=== PATIENT | female | born 1945 | race Caucasian/White ===

== ENCOUNTER 2023-06-25 13:29 | Outpatient (AMB) | payer MEDICARE, OTHER, SELFPAY ==
[2023-06-25 13:33] VITALS: BP 136/70; PULSE 90; O2SAT 96; BMI 32.3
--- NOTE | 2023-06-25 13:33 | MHC.OFFVIS ---
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 The patient is a 77-year-old woman with a history of breast cancer status post radiation in addition to renal cell cancer status post nephrectomy her apparently she has been in usual [facility] until several months ago when she started developing worsening cough shortness of breath. She was evaluated with a chest x-ray sometime in December 2022 demonstrating a hazy basilar opacities. The patient had a course of antibiotics and also prednisone. Her symptoms improved. She did have repeat chest x-ray still with persistent findings. Therefore she patient was referred for CT scan of the chest. I personally reviewed the x-rays and also the CT scan. Overall her lung parenchyma hot was very reassuring. She had some minimal pleural reactions around the right breast area where she did receive her radiation and has some minimal parenchymal scarring at the bases. But no significant parenchymal lung disease. She has small pulmonary nodules measuring about 3 mm in size difficult to visualize if not with the MIP for math he patient should get a repeat CT scan in February 2024. Otherwise she does complaint of shortness of breath at times. [id number] severity. She did use an inhaler in the past but then told that she did not need any longer. Will go ahead and request a pulmonary function study for the patient I will provide her with a rescue inhaler that she may use as needed. If the patient has any worsening symptoms prior to that she is to call the office. Otherwise will plan to repeat the CT scan in a year's time unless the patient has any worsening symptoms or there is any other abnormal findings. [facility] Medical History (Updated 06/25/23 @ 20:40 by Nav Pizano MD) Breast cancer Dyspnea ILD (interstitial lung disease) Pulmonary nodules Renal cancer Social History (Updated 06/25/23 @ 13:40 by Lizett Murphy, RMA) Patient Tobacco Use Status: Never used Tobacco Review of Systems Const Denies fever(s) Eyes Denies change in vision ENT Reports nasal congestion Card Denies chest pain, Denies rapid heart rate and Reports dyspnea on exertion Resp Denies chest congestion, Reports cough, Denies hemoptysis and Reports dyspnea on exertion GI Denies abdominal pain Musc Reports no additional complaints Skin/Breast Denies rash Neuro Reports no additional complaints Endo Denies flushing Juan Jose/Lymph Denies lymphadenopathy Aller/Immun Reports no additional complaints Physical Exam Vital Signs: Last Vital Signs Pulse 90 06/25/23 13:33 BP 136/70 06/25/23 13:33 Pulse Ox 96 06/25/23 13:33 Oxygen Delivery Method Room Air 06/25/23 13:33 BMI result Body Mass Index 32.3 Const General: comfortable HEENT Head: Yes normocephalic Eyes General: appearance normal, both eyes and all related structures Neck Neck: Yes supple Chest Chest palpation & inspection: normal inspection of the chest Resp Effort & Inspection: normal respiratory effort and able to speak in complete sentences Auscultation: no crackles, no rales, no rhonchi and diminished lung sounds Cardio Rate: regular rate Rhythm: regular rhythm Heart sounds: S1 normal heart sound present and S2 normal heart sound present GI Palpation (GI): Soft to palpation Skin General skin exam: no rashes or lesions noted Extrem General: Yes no clubbing, cyanosis or edema Assessment & Plan Assessment & Plan (1) Dyspnea: Code(s): R06.00 - Dyspnea, unspecified Qualifiers: Dyspnea type: dyspnea on exertion Qualified Code(s): R06.09 - Other forms of dyspnea (2) ILD (interstitial lung disease): Comment: minimal changes at the bases. Also minimal pleural based changes due to previous breast XRT Code(s): J84.9 - Interstitial pulmonary disease, unspecified (3) Pulmonary nodules: Code(s): R91.8 - Other nonspecific abnormal finding of lung field Plan start HANSA as needed PFTs Repeat CT cest 02/2024 F/U 3-4 months Orders: Orders CT chest wo IV con 02/25/24 R91.8 - Other nonspecific abnormal finding of lung field PFT pulmonary function test Today R06.09 - Other forms of dyspnea Medications: New albuterol sulfate 90 mcg/actuation 2 inhalations inhalation Q6H PRN 18 grams 12RF shortness of breath or wheezing 30 days J44.9 - Chronic obstructive pulmonary disease, unspecified Coding Level of Care Code New Pt Level 4 (87189) Diagnoses Dyspnea R06.09 Dyspnea type: dyspnea on exertion ILD (interstitial lung disease) J84.9 Pulmonary nodules R91.8 Time Spent (min) 38
== END 2023-06-25 14:07 | disposition home or self-care (01) ==
PROVIDERS: PCP Nurse Practitioner Primary Care; Visit Provider Hospitalist
DX: R06.09 Other forms of dyspnea (principal); J84.9 Interstitial pulmonary disease, unspecified; R91.8 Other nonspecific abnormal finding of lung field
CPT/HCPCS: 99204

== ENCOUNTER → 2023-06-25 13:29 | Outpatient (BNVA) | payer MEDICARE, OTHER, SELFPAY | PROVIDERS: Visit Provider Hospitalist | DX: R06.09 Other forms of dyspnea (principal); J84.9 Interstitial pulmonary disease, unspecified; R91.8 Other nonspecific abnormal finding of lung field; Z85.3 Personal history of malignant neoplasm of breast; Z85.53 Personal history of malignant neoplasm of renal pelvis; Z90.5 Acquired absence of kidney; Z92.3 Personal history of irradiation | CPT/HCPCS: 99202 ==

== ENCOUNTER 2023-09-18 10:48 | Outpatient (REF) | payer MEDICARE, OTHER, SELFPAY ==
--- NOTE | 2023-09-18 12:30 | PFT_ITS ---
INDICATION: Dyspnea. SPIROMETRY: FEV1 to FVC is 69% pre bronchodilators, 77% post bronchodilators with an FEV1 of 1.48 L, which is 100% predicted and an FVC of 1.92 L, which is 90% predicted. No significant response to bronchodilators noted. Maximum voluntary ventilation 56% predicted. LUNG VOLUMES: Total lung capacity 82% predicted. DIFFUSION CAPACITY: DLCO of 70% predicted. COMPARISONS: None available. INTERPRETATION: There appears to be a reversible obstructive ventilatory defect, consistent with a diagnosis of asthma. The patient did not have a significant response to bronchodilators noted. There was significant small airway disease. The patient had a mild decrease in the maximum voluntary ventilation, which could be secondary to deconditioning. Lung volumes are low normal, and the patient does have a mild diffusion impairment. Clinical correlation warranted. MD JOEY Cole/MODL / [id number]
== END 2023-09-18 10:49 | disposition home or self-care (01) ==
LOC: HO.RESP 10:48
PROVIDERS: PCP Nurse Practitioner Primary Care; Visit Provider Hospitalist
DX: R06.09 Other forms of dyspnea (principal)
CPT/HCPCS: 94010; 94729

== ENCOUNTER → 2023-09-18 12:30 | Outpatient (BNV) | payer MEDICARE, OTHER, SELFPAY | PROVIDERS: PCP Nurse Practitioner Primary Care; Visit Provider Hospitalist | DX: R06.09 Other forms of dyspnea (principal) | CPT/HCPCS: 94060; 94727; 94729 ==

== ENCOUNTER 2023-10-23 10:45 | Outpatient (AMB) | payer MEDICARE, OTHER, SELFPAY ==
[2023-10-23 10:48] VITALS: BP 110/64; PULSE 95; RESP 12; O2SAT 96; BMI 34.3
--- NOTE | 2023-10-23 10:48 | A.OFFVIS_ITS ---
Intake Vital Signs 10/23/23 10:48 Height 4 ft 11 in Weight 170 lb BMI 34.3 BP 110/64 Blood Pressure Location Lt brachial Position Sitting Respiration 12 Pulse 95 Pulse Source Pulse Oximeter Pulse Oximetry (%) 96 Oxygen Delivery Method Room Air Intake Visit Reasons: ILD Allergies Penicillins Allergy (Severe, Verified 10/23/23 10:51) Rash sulfa Drugs Adverse Reaction (Severe, Uncoded 10/23/23 10:51) Rash Medication List - Last Reconciled 10/23/23 by Carmen Lopez LPN albuterol sulfate 90 mcg/actuation 2 inhalations inhalation Q6H PRN 30 days gabapentin 300 mg PO BEDTIME mirabegron ER (Myrbetriq) 25 mg PO DAILY omeprazole 20 mg PO DAILY pravastatin 20 mg PO BEDTIME risankizumab-rzaa (Skyrizi) 600 mg IV Q4W ropinirole mg PO sertraline 50 mg PO DAILY tobramycin-dexamethasone 0.3-0.1 % (TobraDex) ophthalmic (eye) BID PRN triamcinolone acetonide 0.1% appl topical BID PRN verapamil ER 120 mg PO DAILY HPI HPI Comments History of Present Illness Details The patient is a 78-year-old woman with a history of breast cancer status post radiation in addition to renal cell cancer status post nephrectomy her apparently she has been in usual state [facility] until several months ago when she started developing worsening cough shortness of breath. She was evaluated with a chest x-ray sometime in December 2022 demonstrating a hazy basilar opacities. The patient had a course of antibiotics and also prednisone. Her symptoms improved. She did have repeat chest x-ray still with persistent findings. Therefore she patient was referred for CT scan of the chest. I personally reviewed the x-rays and also the CT scan. Overall her lung parenchyma hot was very reassuring. She had some minimal pleural reactions around the right breast area where she did receive her radiation and has some minimal parenchymal scarring at the bases. But no significant parenchymal lung disease. She has small pulmonary nodules measuring about 3 mm in size difficult to visualize if not with the MIP for math he patient should get a repeat CT scan in February 2024. Otherwise she does complaint of shortness of breath at times. [id number] severity. She did use an inhaler in the past but then told that she did not need any longer. Will go ahead and request a pulmonary function study for the patient I will provide her with a rescue inhaler that she may use as needed. If the patient has any worsening symptoms prior to that she is to call the office. Otherwise will plan to repeat the CT scan in a year's time unless the patient has any worsening symptoms or there is any other abnormal findings. 10/23/2023 the patient is here for a pul monary follow-up visit. The patient overall has been doing well. She has been exercising more. She finds that the rescue inhaler has been helpful specially after she exercises she gets short of breath. I did also recommend she can use inhaler prior to exercise to see if that would improve her exercise capacity. In addition to that she did undergo pulmonary function studies which we personally reviewed together. It appears that she has a reversible obstruction consistent with some degree of asthma. Therefore the use of the rescue inhaler she has fine. Although if she continues to need it frequently more than twice a week then we can consider a longer acting medications such as Symbicort she can also use as needed. The patient does have underlying interstitial changes and also some areas of ground-glass on the CT scan that she had back in 2022. But, her total lung capacity is within normal limits under PFTs which is reassuring. She does have a mild diffusion impairment will go ahead and repeat her CT scan in February 2024 to follow-up on her pulmonary nodules and interstitial changes. In the meantime she is going to continue with the albuterol. If she does change him I want to try Symbicort she can always call him consent prescription. [facility] Medical History (Updated 10/23/23 @ 20:44 by Nav Pizano MD) Asthma Pulmonary nodules ILD (interstitial lung disease) Renal cancer Breast cancer Dyspnea Social History (Updated 06/25/23 @ 13:40 by VITO Up) Patient Tobacco Use Status: Never used Tobacco Review of Systems Const Denies fever(s) Eyes Denies change in vision ENT Reports nasal congestion Card Denies chest pain, Denies rapid heart rate and Reports dyspnea on exertion Resp Denies chest congestion, Reports cough, Denies hemoptysis and Reports dyspnea on exertion GI Denies abdominal pain Musc Reports no additional complaints Skin/Breast Denies rash Neuro Reports no additional complaints Endo Denies flushing Juan Jose/Lymph Denies lymphadenopathy Aller/Immun Reports no additional complaints Physical Exam Vital Signs: Last Vital Signs Pulse 95 10/23/23 10:48 Resp 12 10/23/23 10:48 BP 110/64 10/23/23 10:48 Pulse Ox 96 10/23/23 10:48 Oxygen Delivery Method Room Air 10/23/23 10:48 BMI result Body Mass Index 34.3 Const General: comfortable HEENT Head: Yes normocephalic Eyes General: appearance normal, both eyes and all related structures Neck Neck: Yes supple Chest Chest palpation & inspection: normal inspection of the chest Resp Effort & Inspection: normal respiratory effort and able to speak in complete sentences Auscultation: no crackles, no rales, no rhonchi and diminished lung sounds Cardio Rate: regular rate Rhythm: regular rhythm Heart sounds: S1 normal heart sound present and S2 normal heart sound present GI Palpation (GI): Soft to palpation Skin General skin exam: no rashes or lesions noted Extrem General: Yes no clubbing, cyanosis or edema Assessment & Plan Assessment & Plan (1) Dyspnea: Code(s): R06.00 - Dyspnea, unspecified Qualifiers: Dyspnea type: dyspnea on exertion Qualified Code(s): R06.09 - Other forms of dyspnea (2) ILD (interstitial lung disease): Comment: minimal changes at the bases. Also minimal pleural based changes due to previous breast XRT Code(s): J84.9 - Interstitial pulmonary disease, unspecified (3) Pulmonary nodules: Code(s): R91.8 - Other nonspecific abnormal finding of lung field (4) Asthma: Comment: +reversible obstruction on spiometry Code(s): J45.909 - Unspecified asthma, uncomplicated Qualifiers: Asthma severity: mild Asthma persistence: persistent Asthma complication type: uncomplicated Qualified Code(s): J45.30 - Mild persistent asthma, uncomplicated Plan continue HANSA as needed Repeat CT cest 02/2024 F/U 4 months Coding Level of Care Code Est Pt Level 4 (11283) Diagnoses Dyspnea on exertion R06.09 Dyspnea type: dyspnea on exertion ILD (interstitial lung disease) J84.9 Pulmonary nodules R91.8 Mild persistent asthma without complication J45.30 Asthma severity: mild Asthma persistence: persistent Asthma complication type: uncomplicated Time Spent (min) 16
== END 2023-10-23 11:18 | disposition home or self-care (01) ==
PROVIDERS: PCP Nurse Practitioner Primary Care; Visit Provider Hospitalist
DX: R06.09 Other forms of dyspnea (principal); J84.9 Interstitial pulmonary disease, unspecified; R91.8 Other nonspecific abnormal finding of lung field; J45.30 Mild persistent asthma, uncomplicated
CPT/HCPCS: 99214

== ENCOUNTER → 2023-10-23 10:45 | Outpatient (BNVA) | payer MEDICARE, OTHER, SELFPAY | PROVIDERS: PCP Nurse Practitioner Primary Care; Visit Provider Hospitalist | DX: J45.30 Mild persistent asthma, uncomplicated (principal); J84.9 Interstitial pulmonary disease, unspecified; R06.09 Other forms of dyspnea; R91.8 Other nonspecific abnormal finding of lung field | CPT/HCPCS: 99212 ==

== ENCOUNTER 2024-02-20 08:44 | Outpatient (REF) | payer MEDICARE, OTHER, SELFPAY ==
--- NOTE | ~2024-02-20 | CT_ITS ---
EXAMINATION: CT CHEST WITHOUT CONTRAST CLINICAL INFORMATION: Pulmonary nodule COMPARISON: Written report on CT scan of chest at [facility] on 03/05/2023. TECHNIQUE: Multidetector volumetric CT imaging of the chest was done. Axial MIP volume rendering provided. Sagittal and coronal reformatted images were obtained. This CT examination was performed using dose optimization techniques as appropriate, variously including the following: *Automated exposure control *Adjustment of mA and/or kV according to patient size (this includes techniques or standardized protocols for targeted exams where dose is matched to indication/reason for exam; i.e. extremities or head) *Use of iterative reconstruction technique DLP: 122 mGy-cm FINDINGS: LUNGS: The visualized lung parenchyma is clear. -Nodule #1 (Series 6, image 132): 5.4 mm solid nodule, posterior medial corner of right upper lobe apical segment, previously 3 mm. -Nodule #2 (Series 6, image 205): 4.5 mm solid nodule, anterior medial border of right lower lobe superior segment attached to the right major fissure, compatible with intrapulmonary lymph node, previously 3 mm. The previously reported posterior left apical calcified granuloma could not be visualized on the current examination. PLEURA: No pleural effusion or pneumothorax is seen. PERICARDIUM: No pericardial effusion is seen. MEDIASTINUM AND GLORIA: Inadequate evaluation of the mediastinal and hilar lymph nodes due to absence of IV contrast filling the surrounding blood vessels. TRACHEOBRONCHIAL TREE: Trachea and bilateral mainstem bronchi are densely calcified, but patent. THORACIC AORTA: The thoracic aorta is normal in size and smoothly patent. CORONARY ARTERY CALCIFICATIONS: None PULMONARY ARTERIES: The main pulmonary arteries appear to be normal in size. CHEST WALL AND LOWER NECK: Multiple surgical clips are seen in the right axilla. Asymmetric superior medial right breast irregular lesion, measuring 0.8 cm in AP diameter, 1.5 cm in width, just anterior to the right pectoralis major muscle. The subcutaneous and muscular chest wall are intact with no focal lesion. No abnormal mass lesion could be seen in the visualized lower neck. BONES: Lower cervical spine ACDF, fixation with anterior metallic plate and screws is seen. No fracture or dislocation. No focal bone lesion diagnostic of metastatic disease could be seen in the thorax. VISUALIZED UPPER ABDOMEN: Bilateral adrenal glands are not enlarged. CT/CT chest wo IV con IMPRESSION: 1. 5.4 mm solid nodule, posterior medial corner of right upper lobe apical segment, previously 3 mm. 2. 4.5 mm solid nodule, anterior medial border of right lower lobe superior segment, compatible with intrapulmonary lymph node, previously 3 mm. 3. Asymmetric superior medial right breast irregular lesion, measuring 0.8 cm in AP diameter, 1.5 cm in width, just anterior to the right pectoralis major muscle. 4. Apart from unchanged status post right axillary dissection, the superior medial right breast irregular nodule directly anterior to the right pectoralis major muscle was not reported previously. Correlation with mammographic findings is recommended. According to the UPDATED 2017 Fleischner Society recommendations, the advised follow-up imaging for nodules <6mm in the upper lobes is not necessarily required in low-risk patients. In high-risk patients with a nodule in the upper lobe and/or demonstrating suspicious morphology, an optional CT follow-up at 12 months may be obtained. If stable at 12 months, no further follow-up is recommended. Given the possible interval increase in size of the right upper lobe lung nodule, which could be due to variation in measurements, it would be prudent to follow-up with noncontrast CT scan of chest in 12 months. Fleischner guidelines were followed.
== END 2024-02-20 08:45 | disposition home or self-care (01) ==
LOC: HO.CT 08:44
PROVIDERS: PCP Nurse Practitioner Primary Care; Visit Provider Hospitalist
DX: R91.8 Other nonspecific abnormal finding of lung field (principal)
CPT/HCPCS: 71250

== ENCOUNTER 2024-04-01 10:58 | Outpatient (AMB) | payer MEDICARE, OTHER, SELFPAY ==
[2024-04-01 11:02] VITALS: PULSE 82; O2SAT 97; BMI 31.3
--- NOTE | 2024-04-01 11:02 | MHC.OFFVIS ---
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 She was evaluated with a chest x-ray sometime in December 2022 demonstrating a hazy basilar opacities. The patient had a course of antibiotics and also prednisone. Her symptoms improved. She did have repeat chest x-ray still with persistent findings. Therefore she patient was referred for CT scan of the chest. I personally reviewed the x-rays and also the CT scan. Overall her lung parenchyma hot was very reassuring. She had some minimal pleural reactions around the right breast area where she did receive her radiation and has some minimal parenchymal scarring at the bases. But no significant parenchymal lung disease. She has small pulmonary nodules measuring about 3 mm in size difficult to visualize if not with the MIP for math he patient should get a repeat CT scan in February 2024. Otherwise she does complaint of shortness of breath at times. Ymrz-ci-pthnzyeg severity. She did use an inhaler in the past but then told that she did not need any longer. Will go ahead and request a pulmonary function study for the patient I will provide her with a rescue inhaler that she may use as needed. If the patient has any worsening symptoms prior to that she is to call the office. Otherwise will plan to repeat the CT scan in a year's time unless the patient has any worsening symptoms or there is any other abnormal findings. 10/23/2023 the patient is here for a pulmonary follow-up visit. The patient overall has been doing well. She has been exercising more. She finds that the rescue inhaler has been helpful specially after she exercises she gets short of breath. I did also recommend she can use inhaler prior to exercise to see if that would improve her exercise capacity. In addition to that she did undergo pulmonary function studies which we personally reviewed together. It appears that she has a reversible obstruction consistent with some degree of asthma. Therefore the use of the rescue inhaler she has fine. Although if she continues to need it frequently more than twice a week then we can consider a longer acting medications such as Symbicort she can also use as needed. The patient does have underlying interstitial changes and also some areas of ground-glass on the CT scan that she had back in 2022. But, her total lung capacity is within normal limits under PFTs which is reassuring. She does have a mild diffusion impairment will go ahead and repeat her CT scan in February 2024 to follow-up on her pulmonary nodules and interstitial changes. In the meantime she is going to continue with the albuterol. If she does change him I want to try Symbicort she can always call him consent prescription. 04/01/2024 the patient is here for a pulmonary follow-up visit. The patient has been doing well. She continues have shortness of breath with activity. Cnxu-by-ilsvjuvp severity. She does have a rescue inhaler she does use the patient did have pulmonary function studies which we did review demonstrating reversible obstruction. Therefore explained to her that using a maintenance inhaler may be to her benefit. Before, we has [facility] Symbicort but it was too expensive. Will go ahead and send her Breo to the pharmacy to see this is less expensive. If it is expensive we can also consider other alternatives. The patient would still benefit from using a maintenance inhaler. The patient also had a CT scan of the chest which was personally by me. She does have some underlying pulmonary nodules that will need follow-up. She also had a breast nodule that was followed up with a biopsy that was negative for any cancer which is reassuring. The continue to monitor. In addition to that the patient did have some very fine reticular changes primarily in the periphery of the lungs suggesting some degree of interstitial lung disease likely corresponding to her symptoms. On her physical exam the patient did have pronounced S2. I did bring up the question of sleep apnea based on that suggestion of elevated pulmonary pressures with that pronounced S2. She states that she does have significant snoring some daytime drowsiness with an elevated [place] score of 8/24. She is scheduled to have a sleep study soon. [facility] Medical History (Updated 04/01/24 @ 11:23 by Nav Pizano MD) FARIDEH (obstructive sleep apnea) Asthma Pulmonary nodules ILD (interstitial lung disease) Renal cancer Breast cancer Dyspnea Social History (Updated 06/25/23 @ 13:40 by VITO Up) Patient Tobacco Use Status: Never used Tobacco Review of Systems Const Denies fever(s) Eyes Denies change in vision ENT Reports nasal congestion Card Denies chest pain, Denies rapid heart rate and Reports dyspnea on exertion Resp Denies chest congestion, Reports cough, Denies hemoptysis and Reports dyspnea on exertion GI Denies abdominal pain Musc Reports no additional complaints Skin/Breast Denies rash Neuro Reports no additional complaints Endo Denies flushing Juan Jose/Lymph Denies lymphadenopathy Aller/Immun Reports no additional complaints Physical Exam Vital Signs: Last Vital Signs Pulse 82 04/01/24 11:02 Pulse Ox 97 04/01/24 11:02 Oxygen Delivery Method Room Air 04/01/24 11:02 BMI result Body Mass Index 31.3 Const General: comfortable HEENT Head: Yes normocephalic Eyes General: appearance normal, both eyes and all related structures Neck Neck: Yes supple Chest Chest palpation & inspection: normal inspection of the chest Resp Effort & Inspection: normal respiratory effort and able to speak in complete sentences Auscultation: no crackles, no rales, no rhonchi and diminished lung sounds Cardio Rate: regular rate Rhythm: regular rhythm Heart sounds: S1 normal heart sound present and S2 normal heart sound present GI Palpation (GI): Soft to palpation Skin General skin exam: no rashes or lesions noted Extrem General: Yes no clubbing, cyanosis or edema Assessment & Plan Assessment & Plan (1) Dyspnea: Code(s): R06.00 - Dyspnea, unspecified Category: Medical Qualifiers: Dyspnea type: dyspnea on exertion Qualified Code(s): R06.09 - Other forms of dyspnea (2) ILD (interstitial lung disease): Comment: minimal changes at the bases. Also minimal pleural based changes due to previous breast XRT Code(s): J84.9 - Interstitial pulmonary disease, unspecified Category: Medical (3) Pulmonary nodules: Code(s): R91.8 - Other nonspecific abnormal finding of lung field Category: Medical (4) Asthma: Comment: +reversible obstruction on spiometry Code(s): J45.909 - Unspecified asthma, uncomplicated Category: Medical Qualifiers: Asthma complication type: uncomplicated Asthma persistence: persistent Asthma severity: mild Qualified Code(s): J45.30 - Mild persistent asthma, uncomplicated (5) FARIDEH (obstructive sleep apnea): Code(s): G47.33 - Obstructive sleep apnea (adult) (pediatric) Category: Medical Plan continue HANSA as needed start Breo daily Repeat CT cest 01/2025 Sleep study at [facility] F/U in 6 months Orders: Orders CT chest wo IV con 02/09/25 R91.8 - Other nonspecific abnormal finding of lung field Medications: New fluticasone furoate-vilanterol 200-25 mcg/dose (Breo Ellipta) 1 inh inhalation DAILY 30 days 60 ea 11RF J45.909 - Unspecified asthma, uncomplicated fluticasone furoate-vilanterol 200-25 mcg/dose (Breo Ellipta) 1 inh inhalation DAILY 30 days 60 ea 11RF J45.909 - Unspecified asthma, uncomplicated Coding Level of Care Code Est Pt Level 4 (94185) Diagnoses Dyspnea on exertion R06.09 Dyspnea type: dyspnea on exertion ILD (interstitial lung disease) J84.9 Pulmonary nodules R91.8 Mild persistent asthma without complication J45.30 Asthma complication type: uncomplicated Asthma persistence: persistent Asthma severity: mild FARIDEH (obstructive sleep apnea) G47.33 Time Spent (min) 17
== END 2024-04-01 11:27 | disposition home or self-care (01) ==
PROVIDERS: PCP Nurse Practitioner Primary Care; Visit Provider Hospitalist
DX: R06.09 Other forms of dyspnea (principal); J84.9 Interstitial pulmonary disease, unspecified; R91.8 Other nonspecific abnormal finding of lung field; J45.30 Mild persistent asthma, uncomplicated; G47.33 Obstructive sleep apnea (adult) (pediatric)
CPT/HCPCS: 99214

== ENCOUNTER → 2024-04-01 10:58 | Outpatient (BNVA) | payer MEDICARE, OTHER, SELFPAY | PROVIDERS: PCP Nurse Practitioner Primary Care; Visit Provider Hospitalist | DX: J84.9 Interstitial pulmonary disease, unspecified (principal); R06.09 Other forms of dyspnea; R91.8 Other nonspecific abnormal finding of lung field; J45.30 Mild persistent asthma, uncomplicated; G47.33 Obstructive sleep apnea (adult) (pediatric) | CPT/HCPCS: 99212 ==

== ENCOUNTER 2024-10-15 11:04 | Outpatient (REF) | payer MEDICARE, OTHER, SELFPAY ==
[2024-10-15 12:31] LABS: MANUAL DIFF FLAG NO
[2024-10-15 12:58] LABS: Basophils Absolute Auto 0.1 X10*3/uL (0.0-0.2); Basophils Percent Auto 1.3 % (0-2); Eosinophils Absolute Auto 0.1 X10*3/uL (0.0-0.4); Eosinophils Percent Auto 2.3 % (0-4); Hematocrit 39.3 % (37.0-47.0); Hemoglobin 13.3 g/dl (12.0-16.0); Imm Gran Abs Auto 0.02 X10*3/uL (0.00-0.03); Imm Gran Pct Auto 0.3 % (0.0-0.4); Lymphocytes Absolute Auto 1.8 X10*3/uL (1.2-4.9); Lymphocytes Percent Auto 30.8 % (20-40); Mean Corpuscular HGB Conc 33.8 g/dl (31.0-35.0); Mean Corpuscular Hemoglobin 30.3 pg (27.0-33.0); Mean Corpuscular Volume 89.5 fL (80.0-98.0); Mean Platelet Volume 9.3 fL (9.4-12.3); Monocytes Absolute Auto 0.7 X10*3/uL (0.1-1.2); Monocytes Percent Auto 11.2 % (2-11); Neutrophils Absolute Auto 3.2 x10*3/uL (2.0-8.3); Neutrophils Percent Auto 54.1 % (45-73); Platelet Count 310 X10*3/uL (160-400); Red Blood Count 4.39 X10*6/uL (4.20-5.50); Red Cell Distribution Width 13.2 % (11.0-16.0)
[2024-10-15 13:35] LABS: Erythrocyte Sedimentation Rate 22 MM/HR (0-20)
[2024-10-15 13:43] LABS: B Type Natriuretic Peptide 69 pg/mL (<100)
[2024-10-17 10:39] LABS: Anti Nuclear Antibody Screen NEGATIVE (NEGATIVE)
[2024-10-17 17:18] LABS: Antibody to SS-A Antigen <1.0 NEG AI (<1.0 NEG); Antibody to SS-B Antigen <1.0 NEG AI (<1.0 NEG)
[2024-10-18 00:12] LABS: Cyclic Citrullinated Peptide 22 UNITS
[2024-10-23 17:03] LABS: Asperg fumigatus Precip Abs NEGATIVE (NEGATIVE); Micropoly faeni Abs NEGATIVE (NEGATIVE); Pigeon serum Abs NEGATIVE (NEGATIVE); Saccharo pora viridis Abs NEGATIVE (NEGATIVE); Thermo candidus Abs NEGATIVE (NEGATIVE); Thermoa vulgaris #1 NEGATIVE (NEGATIVE)
== END 2024-10-15 11:05 | disposition home or self-care (01) ==
LOC: HO.XRAY 11:04
PROVIDERS: PCP Nurse Practitioner Primary Care; Visit Provider Hospitalist
DX: J44.9 Chronic obstructive pulmonary disease, unspecified (principal); J45.909 Unspecified asthma, uncomplicated; R06.09 Other forms of dyspnea; J84.9 Interstitial pulmonary disease, unspecified; R91.8 Other nonspecific abnormal finding of lung field
CPT/HCPCS: 36415; 71046; 83880; 85025; 85652; 86038; 86200; 86235; 86331; 86606; 86609; 99212

== ENCOUNTER 2024-10-15 11:04 | Outpatient (AMB) | payer MEDICARE, OTHER, SELFPAY ==
[2024-10-15 11:20] VITALS: BP 126/62; PULSE 105; O2SAT 96
--- NOTE | 2024-10-15 11:20 | MHC.OFFVIS ---
Vital Signs 10/15/24 11:20 Weight 165 lb 5.547 oz BP 126/62 Blood Pressure Location Lt brachial Position Sitting Pulse 105 H Pulse Source Pulse Oximeter Pulse Oximetry (%) 96 Oxygen Delivery Method Room Air Intake Visit Reasons: ILD Allergies Penicillins Allergy (Severe, Verified 10/15/24 11:25) Rash sulfa Drugs Adverse Reaction (Severe, Uncoded 10/15/24 11:25) Rash Medication List - Last Reconciled 10/15/24 by Celia Broussard LPN albuterol sulfate 90 mcg/actuation 2 inhalations inhalation Q6H PRN 30 days fluticasone furoate-vilanterol 200-25 mcg/dose (Breo Ellipta) 1 inh inhalation DAILY 30 days gabapentin 300 mg PO BEDTIME mirabegron ER (Myrbetriq) 25 mg PO DAILY omeprazole 20 mg PO DAILY pravastatin 20 mg PO BEDTIME risankizumab-rzaa (Skyrizi) 600 mg IV Q4W risankizumab-rzaa (Skyrizi) mg subcut ropinirole mg PO sertraline 50 mg PO DAILY verapamil ER 120 mg PO DAILY HPI Comments Details: The patient is a 79-year-old woman with a history of breast cancer status post radiation in addition to renal cell cancer status post nephrectomy her apparently she has been in usual state health until several months ago when she started developing worsening cough shortness of breath. She was evaluated with a chest x-ray sometime in December 2022 demonstrating a hazy basilar opacities. The patient had a course of antibiotics and also prednisone. Her symptoms improved. She did have repeat chest x-ray still with persistent findings. Therefore she patient was referred for CT scan of the chest. I personally reviewed the x-rays and also the CT scan. Overall her lung parenchyma hot was very reassuring. She had some minimal pleural reactions around the right breast area where she did receive her radiation and has some minimal parenchymal scarring at the bases. But no significant parenchymal lung disease. She has small pulmonary nodules measuring about 3 mm in size difficult to visualize if not with the MIP for math he patient should get a repeat CT scan in February 2024. Otherwise she does complaint of shortness of breath at times. Hmoq-lz-cchtorjx severity. She did use an inhaler in the past but then told that she did not need any longer. Will go ahead and request a pulmonary function study for the patient I will provide her with a rescue inhaler that she may use as needed. If the patient has any worsening symptoms prior to that she is to call the office. Otherwise will plan to repeat the CT scan in a year's time unless the patient has any worsening symptoms or there is any other abnormal findings. 10/23/2023 the patient is here for a pulmonary follow-up visit. The patient overall has been doing well. She has been exercising more. She finds that the rescue inhaler has been helpful specially after she exercises she gets short of breath. I did also recommend she can use inhaler prior to exercise to see if that would improve her exercise capacity. In addition to that she did undergo pulmonary function studies which we personally reviewed together. It appears that she has a reversible obstruction consistent with some degree of asthma. Therefore the use of the rescue inhaler she has fine. Although if she continues to need it frequently more than twice a week then we can consider a longer acting medications such as Symbicort she can also use as needed. The patient does have underlying interstitial changes and also some areas of ground-glass on the CT scan that she had back in 2022. But, her total lung capacity is within normal limits under PFTs which is reassuring. She does have a mild diffusion impairment will go ahead and repeat her CT scan in February 2024 to follow-up on her pulmonary nodules and interstitial changes. In the meantime she is going to continue with the albuterol. If she does change him I want to try Symbicort she can always call him consent prescription. 04/01/2024 the patient is here for a pulmonary follow-up visit. The patient has been doing well. She continues have shortness of breath with activity. Lcfy-uq-xazjmbtj severity. She does have a rescue inhaler she does use the patient did have pulmonary function studies which we did review demonstrating reversible obstruction. Therefore explained to her that using a maintenance inhaler may be to her benefit. Before, we has [facility] Symbicort but it was too expensive. Will go ahead and send her Breo to the pharmacy to see this is less expensive. If it is expensive we can also consider other alternatives. The patient would still benefit from using a maintenance inhaler. The patient also had a CT scan of the chest which was personally by me. She does have some underlying pulmonary nodules that will need follow-up. She also had a breast nodule that was followed up with a biopsy that was negative for any cancer which is reassuring. The continue to monitor. In addition to that the patient did have some very fine reticular changes primarily in the periphery of the lungs suggesting some degree of interstitial lung disease likely corresponding to her symptoms. On her physical exam the patient did have pronounced S2. I did bring up the question of sleep apnea based on that suggestion of elevated pulmonary pressures with that pronounced S2. She states that she does have significant snoring some daytime drowsiness with an elevated [place] score of 8/24. She is scheduled to have a sleep study soon. 10/15/2024 the patient is here for a pulmonary follow-up visit. She continues to have dyspnea on exertion. Moderate severity. Even on flat ground but worse when she is going up a flight of stairs or an incline. She did try the Breo but he did not really help her much. Explained to her the reason that we tried it is because did the pulmonary function studies she appeared to have reversible obstruction. Although the patient did not really see any improvement with the medication therefore she go ahead and stop it. The patient states that she did have a cardiology workup at some point. I do not have those results but they told her everything was okay. During the office visit her respiratory exam was clear although diminished. We did again look at her CT scan demonstrating some haziness in the periphery of the lungs suggesting the possibility of interstitial lung disease. In addition to that we did go for 6 minute walk test. The oxygen actually dropped about 91-92%. With activity. She was visibly dyspneic with a dyspnea score of 5/10. Heart rate was also elevated above 100. Therefore and have her undergo a chest x-ray and also appears to be volume overload is will treat her with diuretics to see if that will help her respiratory capacity. She does have a pronounced S2 on the exam bringing up the question of pulmonary hypertension or some degree of elevated blood pressures. [facility] Medical History (Updated 04/01/24 @ 11:23 by Nav Pizano MD) FARIDEH (obstructive sleep apnea) Asthma Pulmonary nodules ILD (interstitial lung disease) Renal cancer Breast cancer Dyspnea Social History (Updated 06/25/23 @ 13:40 by VITO Up) Patient Tobacco Use Status: Never used Tobacco Review of Systems Const Denies fever(s) Eyes Denies change in vision ENT Reports nasal congestion Card Denies chest pain, Denies rapid heart rate and Reports dyspnea on exertion Resp Denies chest congestion, Reports cough, Denies hemoptysis and Reports dyspnea on exertion GI Denies abdominal pain Musc Reports no additional complaints Skin/Breast Denies rash Neuro Reports no additional complaints Endo Denies flushing Juan Jose/Lymph Denies lymphadenopathy Aller/Immun Reports no additional complaints Physical Exam Vital Signs: Last Vital Signs Pulse 105 H 10/15/24 11:20 BP 126/62 10/15/24 11:20 Pulse Ox 96 10/15/24 11:20 Oxygen Delivery Method Room Air 10/15/24 11:20 Const General: comfortable HEENT Head: Yes normocephalic Eyes General: appearance normal, both eyes and all related structures Neck Neck: Yes supple Chest Chest palpation & inspection: normal inspection of the chest Resp Effort & Inspection: normal respiratory effort Auscultation: no crackles, no rales, no rhonchi and diminished lung sounds Cardio Rate: regular rate Rhythm: regular rhythm Heart sounds: S1 normal heart sound present and S2 normal heart sound present GI Palpation (GI): Soft to palpation Skin General skin exam: no rashes or lesions noted Extrem General: Yes no clubbing, cyanosis or edema Assessment & Plan Assessment & Plan (1) Dyspnea: Code(s): R06.00 - Dyspnea, unspecified Category: Medical Qualifiers: Dyspnea type: dyspnea on exertion Qualified Code(s): R06.09 - Other forms of dyspnea (2) ILD (interstitial lung disease): Comment: minimal changes at the bases. Also minimal pleural based changes due to previous breast XRT Code(s): J84.9 - Interstitial pulmonary disease, unspecified Category: Medical (3) Pulmonary nodules: Code(s): R91.8 - Other nonspecific abnormal finding of lung field Category: Medical (4) Asthma: Comment: +reversible obstruction on spiometry Code(s): J45.909 - Unspecified asthma, uncomplicated Category: Medical Qualifiers: Asthma complication type: uncomplicated Asthma persistence: persistent Asthma severity: mild Qualified Code(s): J45.30 - Mild persistent asthma, uncomplicated (5) FARIDEH (obstructive sleep apnea): Code(s): G47.33 - Obstructive sleep apnea (adult) (pediatric) Category: Medical Plan continue HANSA as needed stop Breo daily consider Anoro Lasix 20mg x [address] cest 01/2025 CXR today Bloodwork today Sleep study at [facility]-2022 no FARIDEH F/U in 3-4 months Orders: Orders Hypersensitive Pneumonitis Prf Today J84.9 - Interstitial pulmonary disease, unspecified, R91.8 - Other nonspecific abnormal finding of lung field Cyclic Citrullinated Peptide Today J84.9 - Interstitial pulmonary disease, unspecified XR chest 2V Today J84.9 - Interstitial pulmonary disease, unspecified, R06.09 - Other forms of dyspnea Erythrocyte Sedimentation Rate Today J84.9 - Interstitial pulmonary disease, unspecified Complete Blood Count Auto Diff Today J84.9 - Interstitial pulmonary disease, unspecified B Type Natriuretic Peptide Today J84.9 - Interstitial pulmonary disease, unspecified NAVEED Reflex Titer and Pattern Today J84.9 - Interstitial pulmonary disease, unspecified Sjogren's Antibodies Today J84.9 - Interstitial pulmonary disease, unspecified Medications: New furosemide (Lasix) 20 mg PO DAILY 7 tabs 0RF 7 days Discontinued fluticasone furoate-vilanterol 200-25 mcg/dose (Breo Ellipta) Discontinued Reason: None 1 inh inhalation DAILY 30 days 60 ea 11RF J45.909 - Unspecified asthma, uncomplicated Coding Level of Care Code Est Pt Level 4 (20483) Complex EM visit Add On G2211 Diagnoses Dyspnea on exertion R06.09 Dyspnea type: dyspnea on exertion ILD (interstitial lung disease) J84.9 Pulmonary nodules R91.8 Mild persistent asthma without complication J45.30 Asthma complication type: uncomplicated Asthma persistence: persistent Asthma severity: mild FARIDEH (obstructive sleep apnea) G47.33 Time Spent (min) 17
== END 2024-10-15 11:52 | disposition home or self-care (01) ==
PROVIDERS: PCP Nurse Practitioner Primary Care; Visit Provider Hospitalist
DX: R06.09 Other forms of dyspnea (principal); J84.9 Interstitial pulmonary disease, unspecified; R91.8 Other nonspecific abnormal finding of lung field; J45.30 Mild persistent asthma, uncomplicated; G47.33 Obstructive sleep apnea (adult) (pediatric)
CPT/HCPCS: 99214; G2211

== ENCOUNTER 2025-02-20 12:31 | Outpatient (REF) | payer MEDICARE, OTHER, SELFPAY ==
--- NOTE | ~2025-02-20 | CT_ITS ---
EXAMINATION: CT CHEST WITHOUT CONTRAST CLINICAL INFORMATION: Pulmonary nodules. COMPARISON: February 20, 2024. TECHNIQUE: Multidetector volumetric CT imaging of the chest was done. Axial MIP volume rendering provided. Sagittal and coronal reformatted images were obtained. This CT examination was performed using dose optimization techniques as appropriate, variously including the following: *Automated exposure control *Adjustment of mA and/or kV according to patient size (this includes techniques or standardized protocols for targeted exams where dose is matched to indication/reason for exam; i.e. extremities or head) *Use of iterative reconstruction technique DLP: 126 mGy centimeter FINDINGS: INVESTMENT TRADER: No hyperinflation. Metallic plate lower cervical spine. Vascular clips right axillary region. LUNGS: There is a 2 mm noncalcified pulmonary nodule in the apical posterior segment left upper lung lobe. Peripheral patchy pulmonary groundglass. No bronchiectasis. No honeycombing. Respiratory airways patent.. MEDIASTINUM: No lymphadenopathy. No pericardial effusion. Mixed plaques throughout the thoracic aorta without aneurysm. Calcified plaques in the aortic valve. CORONARY ARTERY CALCIFICATION: None visualized on this study. PLEURA: No pleural effusion. No pneumothorax. AXILLA: Status post axillary dissection, right side. UPPER ABDOMEN: Status post cholecystectomy. Calcified plaques abdominal aorta wall. OSSEOUS STRUCTURES: Osteopenia versus osteoporosis. Multilevel mild to moderate thoracic spondylosis. Metallic plate lower cervical spine. No acute fracture or listhesis. No lytic or blastic lesions. CT/CT chest wo IV con IMPRESSION: 2 mm noncalcified pulmonary nodule, apical posterior segment left upper lung lobe. Nonspecific. Overall stable. Fleischner guidelines were followed. Electronically signed by: Geronimo Soto MD 02/20/2025 03:17 PM EDT
== END 2025-02-20 12:32 | disposition home or self-care (01) ==
LOC: HO.CT 12:31
PROVIDERS: PCP Nurse Practitioner Primary Care; Visit Provider Hospitalist
DX: R91.8 Other nonspecific abnormal finding of lung field (principal)
CPT/HCPCS: 71250

== ENCOUNTER → 2025-02-20 12:33 | Outpatient (BNV) | payer MEDICARE, OTHER, SELFPAY | PROVIDERS: PCP Nurse Practitioner Primary Care; Visit Provider Radiology Diagnostic Radiology | DX: R91.8 Other nonspecific abnormal finding of lung field (principal) | CPT/HCPCS: 71250 ==

== ENCOUNTER 2025-03-19 09:30 | Outpatient (AMB) | payer MEDICARE, OTHER, SELFPAY ==
--- NOTE | 2025-03-19 09:33 | A.OFFVIS_ITS ---
Vital Signs 03/19/25 09:34 Height 4 ft 11 in Weight 165 lb 5.547 oz BMI 33.4 BP 154/64 H Blood Pressure Location Lt brachial Position Sitting Pulse 88 Pulse Source Pulse Oximeter Pulse Oximetry (%) 97 Oxygen Delivery Method Room Air Intake Visit Reasons: ILD Accompanied by: Self / Same As Patient Allergies Penicillins Allergy (Severe, Verified 03/19/25 09:36) Rash sulfa Drugs Adverse Reaction (Severe, Uncoded 10/15/24 11:25) Rash HPI Comments Details: The patient is a 79-year-old woman with a history of breast cancer status post radiation in addition to renal cell cancer status post nephrectomy her apparently she has been in usual state health until several months ago when she started developing worsening cough shortness of breath. She was evaluated with a chest x-ray sometime in December 2022 demonstrating a hazy basilar opacities. The patient had a course of antibiotics and also prednisone. Her symptoms improved. She did have repeat chest x-ray still with persistent findings. Therefore she patient was referred for CT scan of the chest. I personally reviewed the x-rays and also the CT scan. Overall her lung parenchyma hot was very reassuring. She had some minimal pleural reactions around the right breast area where she did receive her radiation and has some minimal parenchymal scarring at the bases. But no significant parenchymal lung disease. She has small pulmonary nodules measuring about 3 mm in size difficult to visualize if not with the MIP for math he patient should get a repeat CT scan in February 2024. Otherwise she does complaint of shortness of breath at times. [id number] severity. She did use an inhaler in the past but then told that she did not need any longer. Will go ahead and request a pulmonary function study for the patient I will provide her with a rescue inhaler that she may use as needed. If the patient has any worsening symptoms prior to that she is to call the office. Otherwise will plan to repeat the CT scan in a year's time unless the patient has any worsening symptoms or there is any other abnormal findings. 10/23/2023 the patient is here for a pulmonary follow-up visit. The patient overall has been doing well. She has been exercising more. She finds that the rescue inhaler has been helpful specially after she exercises she gets short of breath. I did also recommend she can use inhaler prior to exercise to see if that would improve her exercise capacity. In addition to that she did undergo pulmonary function studies which we personally reviewed together. It appears that she has a reversible obstruction consistent with some degree of asthma. Therefore the use of the rescue inhaler she has fine. Although if she continues to need it frequently more than twice a week then we can consider a longer acting medications such as Symbicort she can also use as needed. The patient does have underlying interstitial changes and also some areas of ground-glass on the CT scan that she had back in 2022. But, her total lung capacity is within normal limits under PFTs which is reassuring. She does have a mild diffusion impairment will go ahead and repeat her CT scan in February 2024 to follow-up on her pulmonary nodules and interstitial changes. In the meantime she is going to continue with the albuterol. If she does change him I want to try Symbicort she can always call him consent prescription. 04/01/2024 the patient is here for a pulmonary follow-up visit. The patient has been doing well. She continues have shortness of breath with activity. [id number] severity. She does have a rescue inhaler she does use the patient did have pulmonary function studies which we did review demonstrating reversible obstruction. Therefore explained to her that using a maintenance inhaler may be to her benefit. Before, we has [facility] Symbicort but it was too expensive. Will go ahead and send her Breo to the pharmacy to see this is less expensive. If it is expensive we can also consider other alternatives. The patient would still benefit from using a maintenance inhaler. The patient also had a CT scan of the chest which was personally by me. She does have some underlying pulmonary nodules that will need follow-up. She also had a breast nodule that was followed up with a biopsy that was negative for any cancer which is reassuring. The continue to monitor. In addition to that the patient did have some very fine reticular changes primarily in the periphery of the lungs suggesting some degree of interstitial lung disease likely corresponding to her symptoms. On her physical exam the patient did have pronounced S2. I did bring up the question of sleep apnea based on that suggestion of elevated pulmonary pressures with that pronounced S2. She states that she does have significant snoring some daytime drowsiness with an elevated Edgar score of 8/24. She is scheduled to have a sleep study soon. 10/15/2024 the patient is here for a pulmonary follow-up visit. She continues to have dyspnea on exertion. Moderate severity. Even on flat ground but worse when she is going up a flight of stairs or an incline. She did try the Breo but he did not really help her much. Explained to her the reason that we tried it is because did the pulmonary function studies she appeared to have reversible obstruction. Although the patient did not really see any improvement with the medication therefore she go ahead and stop it. The patient states that she did have a cardiology workup at some point. I do not have those results but they told her everything was okay. During the office visit her respiratory exam was clear although diminished. We did again look at her CT scan demonstrating some haziness in the periphery of the lungs suggesting the possibility of interstitial lung disease. In addition to that we did go for 6 minute walk test. The oxygen actually dropped about 91-92%. With activity. She was visibly dyspneic with a dyspnea score of 5/10. Heart rate was also elevated above 100. Therefore and have her undergo a chest x-ray and also appears to be volume overload is will treat her with diuretics to see if that will help her respiratory capacity. She does have a pronounced S2 on the exam bringing up the question of pulmonary hypertension or some degree of elevated blood pressures. 03/19/2025 the patient is here for a pulmonary follow-up visit. Overall the patient has been doing well. Continues to have issues with dyspnea on exertion. Mild in severity. Does well at rest. She continues use her respiratory therapy with good effect. She recently did have a CT scan of the chest which we personally reviewed demonstrating stable pulmonary nodules which is reassuring. No evidence of any significant change in her interstitial changes primarily in the periphery of the lungs. [facility] Medical History (Updated 04/01/24 @ 11:23 by Nav Pizano MD) FARIDEH (obstructive sleep apnea) Asthma Pulmonary nodules ILD (interstitial lung disease) Renal cancer Breast cancer Dyspnea Social History (Updated 03/19/25 @ 09:37 by Janet Gray CMA) Alcohol intake: never Patient Tobacco Use Status: Never used Tobacco Review of Systems Const Denies chills, Denies fatigue, Denies fever(s), Denies weight gain and Denies weight loss Eyes Denies change in vision ENT Denies dizziness Card Denies chest pain, Denies leg edema, Denies lightheadedness, Denies palpitations, Reports dyspnea on exertion, Denies orthopnea and Denies other Resp Reports cough and Reports dyspnea on exertion GI Denies hematochezia and Denies change in stool character Musc Denies abnormal gait, Denies muscle weakness, Denies numbness, Denies radiating pain into limb and Denies tingling Skin/Breast Denies rash Neuro Denies abnormal gait, Denies dizziness, Denies numbness and Denies tingling Endo Denies fatigue and Denies palpitations Juan Jose/Lymph Denies lymphadenopathy Aller/Immun Reports no additional complaints Physical Exam Vital Signs: Last Vital Signs Pulse 88 03/19/25 09:34 BP 154/64 H 03/19/25 09:34 Pulse Ox 97 03/19/25 09:34 Oxygen Delivery Method Room Air 03/19/25 09:34 BMI result Body Mass Index 33.4 Const General: comfortable HEENT Head: Yes normocephalic Eyes General: appearance normal, both eyes and all related structures Neck Neck: Yes supple Chest Chest palpation & inspection: normal inspection of the chest Resp Effort & Inspection: normal respiratory effort Auscultation: no crackles, no rales, no rhonchi and diminished lung sounds Cardio Rate: regular rate Rhythm: regular rhythm Heart sounds: S1 normal heart sound present and S2 normal heart sound present GI Palpation (GI): Soft to palpation Skin General skin exam: no rashes or lesions noted Extrem General: Yes no clubbing, cyanosis or edema Results Reviewed Results Reviewed: [address] [address] [address] Scan Report Signed Patient: Vanita Clark MR#: [id number] : 1945 Acct:[id number] Age/Sex: 79 / F ADM Date: 02/20/25 Loc: HO.CT Attending Dr: Nav Pizano MD Ordering Physician: Nav Pizano MD Date of Service: 02/20/25 Procedure(s): CT chest wo IV con Accession Number(s): [id number] cc: Nav Pizano MD; Monica Broussard ECONOMIC RESEARCH ANALYST~ Report Number: [id number]: Total DLP = 126.00 mGy-cm EXAMINATION: CT CHEST WITHOUT CONTRAST CLINICAL INFORMATION: Pulmonary nodules. COMPARISON: February 20, 2024. TECHNIQUE: Multidetector volumetric CT imaging of the chest was done. Axial MIP volume rendering provided. Sagittal and coronal reformatted images were obtained. This CT examination was performed using dose optimization techniques as appropriate, variously including the following: *Automated exposure control *Adjustment of mA and/or kV according to patient size (this includes techniques or standardized protocols for targeted exams where dose is matched to indication/reason for exam; i.e. extremities or head) *Use of iterative reconstruction technique DLP: 126 mGy centimeter FINDINGS: BOOSTER OPERATOR: No hyperinflation. Metallic plate lower cervical spine. Vascular clips right axillary region. LUNGS: There is a 2 mm noncalcified pulmonary nodule in the apical posterior segment left upper lung lobe. Peripheral patchy pulmonary groundglass. No bronchiectasis. No honeycombing. Respiratory airways patent.. MEDIASTINUM: No lymphadenopathy. No pericardial effusion. Mixed plaques throughout the thoracic aorta without aneurysm. Calcified plaques in the aortic valve. CORONARY ARTERY CALCIFICATION: None visualized on this study. PLEURA: No pleural effusion. No pneumothorax. AXILLA: Status post axillary dissection, right side. UPPER ABDOMEN: Status post cholecystectomy. Calcified plaques abdominal aorta wall. OSSEOUS STRUCTURES: Osteopenia versus osteoporosis. Multilevel mild to moderate thoracic spondylosis. Metallic plate lower cervical spine. No acute fracture or listhesis. No lytic or blastic lesions. CT/CT chest wo IV con IMPRESSION: 2 mm noncalcified pulmonary nodule, apical posterior segment left upper lung lobe. Nonspecific. Overall stable. Fleischner guidelines were followed. Electronically signed by: Geronimo Soto MD 02/20/2025 03:17 PM EDT Dictated By: Geronimo Bess MD Signed By: <Electronically signed by Geronimo Downing MD in OV> 02/20/25 1517 DD/ 1245 TD/TT: 02/20/25 1255 Microbiology Director: Assessment & Plan Assessment & Plan (1) Dyspnea: Code(s): R06.00 - Dyspnea, unspecified Category: Medical Qualifiers: Dyspnea type: dyspnea on exertion Qualified Code(s): R06.09 - Other forms of dyspnea (2) ILD (interstitial lung disease): Comment: minimal changes at the bases. Also minimal pleural based changes due to previous breast XRT Code(s): J84.9 - Interstitial pulmonary disease, unspecified Category: Medical (3) Pulmonary nodules: Code(s): R91.8 - Other nonspecific abnormal finding of lung field Category: Medical (4) Asthma: Comment: +reversible obstruction on spiometry Code(s): J45.909 - Unspecified asthma, uncomplicated Category: Medical Qualifiers: Asthma complication type: uncomplicated Asthma persistence: persistent Asthma severity: mild Qualified Code(s): J45.30 - Mild persistent asthma, uncomplicated (5) FARIDEH (obstructive sleep apnea): Code(s): G47.33 - Obstructive sleep apnea (adult) (pediatric) Category: Medical Plan continue HANSA as needed Sleep study at no FARIDEH CT chest stable, consider repeating in 12-18 months F/U in 12 months Coding Level of Care Code Est Pt Level 4 (56779) Diagnoses Dyspnea on exertion R06.09 Dyspnea type: dyspnea on exertion ILD (interstitial lung disease) J84.9 Pulmonary nodules R91.8 Mild persistent asthma without complication J45.30 Asthma complication type: uncomplicated Asthma persistence: persistent Asthma severity: mild FARIDEH (obstructive sleep apnea) G47.33 Time Spent (min) 17
[2025-03-19 09:34] VITALS: BP 154/64; PULSE 88; O2SAT 97; BMI 33.4
--- OUTSIDE RECORDS SUMMARY | 2025-03-19 10:28 | XMS_ITS | Continuity of Care Document ---
Author Organization [facility] [address] [place] [address] Phone [phone] Social History Type Date Description Comments Sex Unknown Medical Devices Description No Information Available Encounters Description No Information Available Assessments Description No Information Available Plan of Treatment No Information Available Functional Status Description No Information Available Mental Status Description No Information Available Referrals Description No Information Available
--- OUTSIDE RECORDS SUMMARY | 2025-03-19 10:28 | XMS_ITS | Clinical Summary ---
Author Organization [facility] Address [address] [place] [address] Phone Care Team Providers Care Peanut Shaker Name Role Phone Monica Broussard NP Primary Care Provider [phone] Surgical History Surgery Date Site/Laterality Comments STEREOTACTIC CORE BIOPSY 11/26/2005 - 11/25/2006 Right BREAST BIOPSY US RT 11/26/2023 - 11/25/2024 Right BREAST LUMPECTOMY 11/26/2005 - 11/25/2006 Right Medical History Medical History Date Comments Breast cancer (CMS/[facility] V24, CMS/[facility] V28) 2005 Right breast Family History Medical History Relation Name Comments Breast cancer Father's Sister Relation Name Status Comments Father's Sister Alive Social History Tobacco Use Types Packs/Day Years Used Date Smoking Tobacco: Never Assessed Comments No Sex and Gender Information Value Date Recorded Sex Assigned at Female 10/17/2024 10:43 AM EST Legal Sex Female 6:14 AM EST Gender Identity Female 10/17/2024 10:43 AM EST Sexual Orientation Straight 10/17/2024 10 :43 AM EST Obstetrics History Para Term AB IAB SAB Ectopic Multiple Livin g Live Births 3 Last Filed Vital Signs Vital Sign Reading Time Taken Comments Blood Pressure - - Pulse - - Temperature - - Respiratory Rate - - Oxygen Saturation - - Inhaled Oxygen Concentration - - Weight 70.3 kg (155 lb) 10/17/2024 8:30 AM EST Height 149.9 cm (4' 11 ) 10/17/2024 8:30 AM EST Body Mass Index 31.31 10/17/2024 8:30 AM EST Plan of Treatment Health Maintenance Due Date Last Done Comments RSV Immunization Adult Patients (1 - 1-dose 75+ series) 2022 Cholesterol Screening (Lipid Panel) 10/29/2022 Depression Screening 10/29/2022 Falls Risk Assessment 10/29/2022 Hepatitis C Screening 10/29/2022 Medicare Annual Wellness Visit 10/29/2022 Osteoporosis Screening (Bone Density Screening) 10/29/2022 Social Influencers of Health Screening 10/29/2022 Hypertension/CHF/CAD Annual BMP Blood Test 10/17/2024 COVID-19 Vaccine (5 - Mixed Product risk season) 2025 08/20/2024, 12/16/2022, 10/13/2021, Additional history exists DTaP,Tdap,and Td Vaccines (2 - Td or Tdap) 07/07/2025 07/07/2015 Pneumococcal Vaccine: 50+ Years Completed 08/15/2016, 07/12/2015 Zoster Vaccines Completed 06/05/2019, 0403/2019, 07/12/2015 Influenza Vaccine Completed 08/20/2024, , 08/20/2020, Additional history exists HIB Vaccines Aged Out No longer eligi ble based on patient's age to complete this topic HPV Vaccines Aged Out No longer eligi ble based on patient's age to complete this topic Hepatitis A Vaccines Aged Out No long er eligible based on patient's age to complete this topic Hepatitis B Vaccines Aged Out No long er eligible based on patient's age to complete this topic IPV Vaccines Aged Out No longer eligi ble based on patient's age to complete this topic MMR Vaccines Aged Out No longer eligi ble based on patient's age to complete this topic Meningococcal ACWY Vaccine Aged Out N o longer eligible based on patient's age to complete this topic Meningococcal B Vaccine Aged Out No l onger eligible based on patient's age to complete this topic RSV Immunization Patients Under 20 months Aged Out No longer eligible based on patient's age to complete this topic Varicella Vaccines Aged Out No longer eligible based on patient's age to complete this topic Insurance [facility] Advance Directives Documents on File Type Date Recorded Patient Healthcare Applications Analyst Expl anation Health Care Decision (hx) 11/09/2010 AD DAWKINS DIRECTIVE Health Care Decision (hx) 11/09/2010 AD DAWKINS DIRECTIVE Health Care Decision (hx) 11/09/2010 AD DAWKINS DIRECTIVE Health Care Decision (hx) 11/09/2010 AD DAWKINS DIRECTIVE Health Care Decision (hx) 11/09/2010 AD DAWKINS DIRECTIVE Health Care Decision (hx) 11/09/2010 AD DAWKINS DIRECTIVE Health Care Decision (hx) 11/09/2010 AD DAWKINS DIRECTIVE Health Care Decision (hx) 11/09/2010 AD DAWKINS DIRECTIVE Health Care Decision (hx) 11/09/2010 AD DAWKINS DIRECTIVE Health Care Decision (hx) 11/09/2010 AD DAWKINS DIRECTIVE Health Care Decision (hx) 11/09/2010 AD DAWKINS DIRECTIVE Health Care Decision (hx) 11/09/2010 AD DAWKINS DIRECTIVE Health Care Decision (hx) 11/09/2010 AD DAWKINS DIRECTIVE Health Care Decision (hx) 11/09/2010 AD DAWKINS DIRECTIVE Health Care Decision (hx) 11/09/2010 AD DAWKINS DIRECTIVE Health Care Decision (hx) 11/09/2010 AD DAWKINS DIRECTIVE Health Care Decision (hx) 11/09/2010 AD DAWKINS DIRECTIVE Health Care Decision (hx) 11/09/2010 AD DAWKINS DIRECTIVE Health Care Decision (hx) 11/09/2010 AD DAWKINS DIRECTIVE Health Care Decision (hx) 11/09/2010 AD DAWKINS DIRECTIVE Health Care Decision (hx) 11/09/2010 AD DAWKINS DIRECTIVE Health Care Decision (hx) 11/09/2010 AD DAWKINS DIRECTIVE Health Care Decision (hx) 11/09/2010 AD DAWKINS DIRECTIVE Health Care Decision (hx) 11/09/2010 AD DAWKINS DIRECTIVE Health Care Decision (hx) 11/09/2010 AD DAWKINS DIRECTIVE Health Care Decision (hx) 11/09/2010 AD DAWKINS DIRECTIVE Health Care Decision (hx) 11/09/2010 AD DAWKINS DIRECTIVE Health Care Decision (hx) 11/09/2010 AD DAWKINS DIRECTIVE Health Care Decision (hx) 11/09/2010 AD DAWKINS DIRECTIVE Health Care Decision (hx) 11/09/2010 AD DAWKINS DIRECTIVE Health Care Decision (hx) 11/09/2010 AD DAWKINS DIRECTIVE Health Care Decision (hx) 11/09/2010 AD DAWKINS DIRECTIVE Health Care Decision (hx) 11/09/2010 AD DAWKINS DIRECTIVE Health Care Decision (hx) 11/09/2010 AD DAWKINS DIRECTIVE Health Care Decision (hx) 11/09/2010 AD DAWKINS DIRECTIVE Health Care Decision (hx) 11/09/2010 AD DAWKINS DIRECTIVE Health Care Decision (hx) 11/09/2010 AD DAWKINS DIRECTIVE Health Care Decision (hx) 11/09/2010 AD DAWKINS DIRECTIVE Health Care Decision (hx) 11/09/2010 AD DAWKINS DIRECTIVE Health Care Decision (hx) 11/09/2010 AD DAWKINS DIRECTIVE Health Care Decision (hx) 11/09/2010 AD DAWKINS DIRECTIVE Health Care Decision (hx) 11/09/2010 AD DAWKINS DIRECTIVE Health Care Decision (hx) 11/09/2010 AD DAWKINS DIRECTIVE Health Care Decision (hx) 11/09/2010 AD DAWKINS DIRECTIVE Health Care Decision (hx) 11/09/2010 AD DAWKINS DIRECTIVE Health Care Decision (hx) 11/09/2010 AD DAWKINS DIRECTIVE Health Care Decision (hx) 11/09/2010 AD DAWKINS DIRECTIVE Health Care Decision (hx) 11/09/2010 AD DAWKINS DIRECTIVE Health Care Decision (hx) 11/09/2010 AD DAWKINS DIRECTIVE Health Care Decision (hx) 11/09/2010 AD DAWKINS DIRECTIVE Care Teams Peanut Shaker Relationship Specialty Start Date End Date Monica Broussard NP [address] [place] [id number] PCP - General Nurse Practitioner 10/17/24
== END 2025-03-19 10:00 | disposition home or self-care (01) ==
LOC: HO.HPS 09:31
PROVIDERS: PCP Nurse Practitioner Primary Care; Visit Provider Hospitalist
DX: R06.09 Other forms of dyspnea (principal); J84.9 Interstitial pulmonary disease, unspecified; R91.8 Other nonspecific abnormal finding of lung field; J45.30 Mild persistent asthma, uncomplicated; G47.33 Obstructive sleep apnea (adult) (pediatric)
CPT/HCPCS: 99214

== ENCOUNTER → 2025-03-19 09:30 | Outpatient (BNVA) | payer MEDICARE, OTHER, SELFPAY | PROVIDERS: PCP Nurse Practitioner Primary Care; Visit Provider Hospitalist | DX: J45.30 Mild persistent asthma, uncomplicated (principal); J84.9 Interstitial pulmonary disease, unspecified; G47.33 Obstructive sleep apnea (adult) (pediatric); R06.09 Other forms of dyspnea; R91.8 Other nonspecific abnormal finding of lung field | CPT/HCPCS: 99212 ==

== ENCOUNTER 2025-09-23 10:37 | Outpatient (AMB) | payer MEDICARE, OTHER, SELFPAY ==
[2025-09-23 10:49] VITALS: BP 136/50; PULSE 82; O2SAT 96; BMI 33.4
--- NOTE | 2025-09-23 10:49 | MHC.OFFVIS ---
Vital Signs 09/23/25 10:49 Height 4 ft 11 in Weight 165 lb 5.547 oz BMI 33.4 BP 136/50 L Blood Pressure Location Lt brachial Position Sitting Pulse 82 Pulse Source Pulse Oximeter Pulse Oximetry (%) 96 Oxygen Delivery Method Room Air Intake Visit Reasons: ILD Adjuster Arbitrator Required: No Accompanied by: Self / Same As Patient Allergies Penicillins Allergy (Severe, Verified 09/23/25 10:52) Rash sulfa Drugs Adverse Reaction (Severe, Uncoded 10/15/24 11:25) Rash HPI Comments Details: The patient is a 80-year-old woman with a history of breast cancer status post radiation in addition to renal cell cancer status post nephrectomy her apparently she has been in usual state health until several months ago when she started developing worsening cough shortness of breath. She was evaluated with a chest x-ray sometime in December 2022 demonstrating a hazy basilar opacities. The patient had a course of antibiotics and also prednisone. Her symptoms improved. She did have repeat chest x-ray still with persistent findings. Therefore she patient was referred for CT scan of the chest. I personally reviewed the x-rays and also the CT scan. Overall her lung parenchyma hot was very reassuring. She had some minimal pleural reactions around the right breast area where she did receive her radiation and has some minimal parenchymal scarring at the bases. But no significant parenchymal lung disease. She has small pulmonary nodules measuring about 3 mm in size difficult to visualize if not with the MIP for math he patient should get a repeat CT scan in February 2024. Otherwise she does complaint of shortness of breath at times. [id number] severity. She did use an inhaler in the past but then told that she did not need any longer. Will go ahead and request a pulmonary function study for the patient I will provide her with a rescue inhaler that she may use as needed. If the patient has any worsening symptoms prior to that she is to call the office. Otherwise will plan to repeat the CT scan in a year's time unless the patient has any worsening symptoms or there is any other abnormal findings. 10/23/2023 the patient is here for a pulmonary follow-up visit. The patient overall has been doing well. She has been exercising more. She finds that the rescue inhaler has been helpful specially after she exercises she gets short of breath. I did also recommend she can use inhaler prior to exercise to see if that would improve her exercise capacity. In addition to that she did undergo pulmonary function studies which we personally reviewed together. It appears that she has a reversible obstruction consistent with some degree of asthma. Therefore the use of the rescue inhaler she has fine. Although if she continues to need it frequently more than twice a week then we can consider a longer acting medications such as Symbicort she can also use as needed. The patient does have underlying interstitial changes and also some areas of ground-glass on the CT scan that she had back in 2022. But, her total lung capacity is within normal limits under PFTs which is reassuring. She does have a mild diffusion impairment will go ahead and repeat her CT scan in February 2024 to follow-up on her pulmonary nodules and interstitial changes. In the meantime she is going to continue with the albuterol. If she does change him I want to try Symbicort she can always call him consent prescription. 04/01/2024 the patient is here for a pulmonary follow-up visit. The patient has been doing well. She continues have shortness of breath with activity. [id number] severity. She does have a rescue inhaler she does use the patient did have pulmonary function studies which we did review demonstrating reversible obstruction. Therefore explained to her that using a maintenance inhaler may be to her benefit. Before, we has [facility] Symbicort but it was too expensive. Will go ahead and send her Breo to the pharmacy to see this is less expensive. If it is expensive we can also consider other alternatives. The patient would still benefit from using a maintenance inhaler. The patient also had a CT scan of the chest which was personally by me. She does have some underlying pulmonary nodules that will need follow-up. She also had a breast nodule that was followed up with a biopsy that was negative for any cancer which is reassuring. The continue to monitor. In addition to that the patient did have some very fine reticular changes primarily in the periphery of the lungs suggesting some degree of interstitial lung disease likely corresponding to her symptoms. On her physical exam the patient did have pronounced S2. I did bring up the question of sleep apnea based on that suggestion of elevated pulmonary pressures with that pronounced S2. She states that she does have significant snoring some daytime drowsiness with an elevated [place] score of 8/24. She is scheduled to have a sleep study soon. 10/15/2024 the patient is here for a pulmonary follow-up visit. She continues to have dyspnea on exertion. Moderate severity. Even on flat ground but worse when she is going up a flight of stairs or an incline. She did try the Breo but he did not really help her much. Explained to her the reason that we tried it is because did the pulmonary function studies she appeared to have reversible obstruction. Although the patient did not really see any improvement with the medication therefore she go ahead and stop it. The patient states that she did have a cardiology workup at some point. I do not have those results but they told her everything was okay. During the office visit her respiratory exam was clear although diminished. We did again look at her CT scan demonstrating some haziness in the periphery of the lungs suggesting the possibility of interstitial lung disease. In addition to that we did go for 6 minute walk test. The oxygen actually dropped about 91-92%. With activity. She was visibly dyspneic with a dyspnea score of 5/10. Heart rate was also elevated above 100. Therefore and have her undergo a chest x-ray and also appears to be volume overload is will treat her with diuretics to see if that will help her respiratory capacity. She does have a pronounced S2 on the exam bringing up the question of pulmonary hypertension or some degree of elevated blood pressures. 03/19/2025 the patient is here for a pulmonary follow-up visit. Overall the patient has been doing well. Continues to have issues with dyspnea on exertion. Mild in severity. Does well at rest. She continues use her respiratory therapy with good effect. She recently did have a CT scan of the chest which we personally reviewed demonstrating stable pulmonary nodules which is reassuring. No evidence of any significant change in her interstitial changes primarily in the periphery of the lungs. 09/23/2025 the patient is here for pulmonary follow-up visit. The patient is still complains of dyspnea on exertion. Moderate severity. She did follow-up with Cardiology she was placed on diuretics. She has not seen any significant changes in her respiration although her lower extremity edema has improved. She has been working with the performing exercise programs which is reassuring. The patient has a rescue inhaler. She does not see any significant improvement. We did review her CT scan from January 2025 demonstrating some small pulmonary nodules and some mosaic pattern. Therefore will start her on Wixela to see if we can provide some further airway patency in order to decrease her work of breathing. She should continue with a low-sodium diet continue with diuretics. She continue with the exercise program. As far as her CAT scan will follow-up in a year's time to follow up with the pulmonary nodules. [facility] Medical History (Updated 04/01/24 @ 11:23 by Nav Pizano MD) FARIDEH (obstructive sleep apnea) Asthma Pulmonary nodules ILD (interstitial lung disease) Renal cancer Breast cancer Dyspnea Social History Alcohol intake: never Patient Tobacco Use Status: Never used Tobacco Review of Systems Const Denies chills, Denies fatigue, Denies fever(s), Denies weight gain and Denies weight loss Eyes Denies change in vision ENT Denies dizziness Card Denies chest pain, Denies leg edema, Denies lightheadedness, Denies palpitations, Reports dyspnea on exertion, Denies orthopnea and Denies other Resp Reports cough and Reports dyspnea on exertion GI Denies hematochezia and Denies change in stool character Musc Denies abnormal gait, Denies muscle weakness, Denies numbness, Denies radiating pain into limb and Denies tingling Skin/Breast Denies rash Neuro Denies abnormal gait, Denies dizziness, Denies numbness and Denies tingling Endo Denies fatigue and Denies palpitations Juan Jose/Lymph Denies lymphadenopathy Aller/Immun Reports no additional complaints Physical Exam Vital Signs: Last Vital Signs Pulse 82 09/23/25 10:49 BP 136/50 L 09/23/25 10:49 Pulse Ox 96 09/23/25 10:49 Oxygen Delivery Method Room Air 09/23/25 10:49 BMI result Body Mass Index 33.4 Const General: comfortable HEENT Head: Yes normocephalic Eyes General: appearance normal, both eyes and all related structures Neck Neck: Yes supple Chest Chest palpation & inspection: normal inspection of the chest Resp Effort & Inspection: normal respiratory effort Auscultation: no crackles, no rales, no rhonchi and diminished lung sounds Cardio Rate: regular rate Rhythm: regular rhythm Heart sounds: S1 normal heart sound present and S2 normal heart sound present GI Palpation (GI): Soft to palpation Skin General skin exam: no rashes or lesions noted Extrem General: Yes no clubbing, cyanosis or edema Assessment & Plan Assessment & Plan (1) Dyspnea: Code(s): R06.00 - Dyspnea, unspecified Category: Medical Qualifiers: Dyspnea type: dyspnea on exertion Qualified Code(s): R06.09 - Other forms of dyspnea (2) ILD (interstitial lung disease): Comment: minimal changes at the bases. Also minimal pleural based changes due to previous breast XRT Code(s): J84.9 - Interstitial pulmonary disease, unspecified Category: Medical (3) Pulmonary nodules: Code(s): R91.8 - Other nonspecific abnormal finding of lung field Category: Medical (4) Asthma: Comment: +reversible obstruction on spiometry Code(s): J45.909 - Unspecified asthma, uncomplicated Category: Medical Qualifiers: Asthma complication type: uncomplicated Asthma persistence: persistent Asthma severity: mild Qualified Code(s): J45.30 - Mild persistent asthma, uncomplicated (5) FARIDEH (obstructive sleep apnea): Code(s): G47.33 - Obstructive sleep apnea (adult) (pediatric) Category: Medical Plan continue HANSA as needed start Wixela Sleep study at [facility] no FARIDEH CT chest stable, consider repeating in 12 months F/U in 6-8 months Medications: New fluticasone propion-salmeterol 250-50 mcg/dose (Wixela Inhub) 1 inh inhalation Q12H 60 ea 11RF 30 days Coding Level of Care Code Est Pt Level 4 (52362) Complex EM visit Add On G2211 Diagnoses Dyspnea on exertion R06.09 Dyspnea type: dyspnea on exertion ILD (interstitial lung disease) J84.9 Pulmonary nodules R91.8 Mild persistent asthma without complication J45.30 Asthma complication type: uncomplicated Asthma persistence: persistent Asthma severity: mild FARIDEH (obstructive sleep apnea) G47.33 Time Spent (min) 17
--- OUTSIDE RECORDS SUMMARY | 2025-09-23 13:11 | XMS_ITS | Encounter Summary ---
Author Organization [facility] Address [address] [place] [address] Care Team Providers Care Spiral Winder Name Role Phone [place]Mon[place] NP Primary Care Provider [phone] Encounter Details Date Type Department Care Team (Late Contact Info) Description 04/28/2025 Lab Requisition [facility] - Main Lab [address] [facility] [id number] Gage Mccormick, DIONY [address] [place] [id number] Urinary tract infection, site not specified Social History Tobacco Use Types Packs/Day Years Used Date Smoking Tobacco: Never Assessed Comments No Sex and Gender Information Value Date Recorded Sex Assigned at Female 10/17/2024 10:43 AM EST Legal Sex Female 6:14 AM EST Gender Identity Female 10/17/2024 10:43 AM EST Sexual Orientation Straight 10/17/2024 10 :43 AM EST documented as of this encounter Plan of Treatment Upcoming Encounters Date Type Department Care Team (Late Contact Info) Description 10/20/2025 10:15 AM EST [facility]ointment [facility] [address] [place] [address] documented as of this encounter Procedures Procedure Name Priority Date/Time Associated Diagnosis Comments CULTURE URINE Routine 04/28/2025 11:00 AM EDT Urinary tract infection, site not specified documented in this encounter Results * (ABNORMAL) Culture urine (04/28/2025 11:00 AM EDT) Culture, Urine >100,000 CFU/mL Escherichia coli(A) MANUELA 04/30/2025 11:14 AM EDT [facility] Urine Urine specimen obtained by clean catch procedure / Unknown 04/28/2025 11:00 AM EDT 04/28/2025 2:53 PM EDT Narrative Organism Antibiotic Method Susceptibility Escherichia coli Amoxicillin/Clavulanate MANUELA <=2 ug/ml: Susceptible Escherichia coli Ampicillin/Sulbactam MANUELA <=2 ug/ml: Susceptible Escherichia coli Piperacillin/Tazobactam MANUELA <=4 ug/ml: Susceptible Escherichia coli Cefazolin (Urine) MANUELA <=1 ug/ml: Susceptible Escherichia coli Cefoxitin MANUELA <=4 ug/ml: Susceptible Escherichia coli Ceftazidime MANUELA <=0.5 ug/ml: Susceptible Escherichia coli Ceftriaxone MANUELA <=0.25 ug/ml: Susceptible Escherichia coli Cefepime MANUELA <=0.12 ug/ml: Susceptible Escherichia coli Meropenem MANUELA <=0.25 ug/ml: Susceptible Escherichia coli Amikacin MANUELA 2 ug/ml: Susceptible Escherichia coli Gentamicin MANUELA <=1 ug/ml: Susceptible Escherichia coli Ciprofloxacin MANUELA <=0.06 ug/ml: Susceptible Escherichia coli Levofloxacin MANUELA <=0.12 ug/ml: Susceptible Escherichia coli Nitrofurantoin MANUELA <=16 ug/ml: Susceptible Escherichia coli Trimethoprim/Sulfamethoxazole MANUELA <=20 ug/ml: Susceptible us [facility] MICROBIOLOGY - GENERAL ORD ERABLES Final Result [facility] [address] [place] [address], documented in this encounter Visit Diagnoses Diagnosis Urinary tract infection, site not specified Encounter for screening mammogram for breast cancer documented in this encounter Care Teams Spiral Winder Relationship Specialty Start Date End Date Monica Broussard NP [address] [place] [address] PCP - General Nurse Practitioner 10/17/24 documented as of this encounter
--- OUTSIDE RECORDS SUMMARY | 2025-09-23 13:11 | XMS_ITS | Continuity of Care Document ---
Author Organization [facility] [address] [place] [address] Phone [phone] Social History Type Date Description Comments Sex Female Sex Unknown Medical Devices Description No Information Available Encounters Description No Information Available Assessments Description No Information Available Plan of Treatment No Information Available Functional Status Description No Information Available Mental Status Description No Information Available Referrals Description No Information Available
--- OUTSIDE RECORDS SUMMARY | 2025-09-23 13:11 | XMS_ITS | Clinical Summary ---
Author Organization [facility] Address [address] [place] [address] Phone Care Team Providers Care Composite Layup Worker Name Role Phone Monica Broussard NP Primary Care Provider [phone]- [phone] Surgical History Surgery Date Site/Laterality Comments STEREOTACTIC CORE BIOPSY 11/26/2005 - 11/25/2006 Right BREAST BIOPSY US RT 11/26/2023 - 11/25/2024 Right BREAST LUMPECTOMY 11/26/2005 - 11/25/2006 Right Medical History Medical History Date Comments Breast cancer (CMS/[facility] V24, CMS/[facility] V28) 2005 Right breast Family History Medical [...] 10/17/2024 8:30 AM EST Plan of Treatment Upcoming Encounters Date Type Department Care Team (Late st Contact Info) Description 10/20/2025 10:15 AM EST [facility]ointment [facility] [address] [address] Health Maintenance Due Date Last Done Comments RSV Immunization Adult Patients (1 - 1-dose 75+ series) 2022 Cholesterol Screening (Lipid Panel) 10/29/2022 Falls Risk Assessment 10/29/2022 Hepatitis C Screening 10/29/2022 Medicare Annual Wellness Visit 10/29/2022 Osteoporosis Screening (Bone Density Screening) 10/29/2022 Social Influencers of Health Screening 10/29/2022 Hypertension/CHF/CAD Annual BMP Blood Test 10/17/2024 Depression Screening 11/26/2024 DTaP,Tdap,and Td Vaccines (2 - Td or Tdap) 07/07/2025 07/07/2015 COVID-19 Vaccine (5 - Mixed Product risk ) 07/27/2025 08/20/2024, 12/16/2022, 10/13/2021, Additional history exists Influenza Vaccine (#1) 2025 , 09/14/2022, 08/20/2020, Additional history exists Pneumococcal Vaccine: 50+ Years Completed 08/15/2016, 07/12/2015 Zoster Vaccines Completed 06/05/2019, 0403/2019, 07/12/2015 HIB Vaccines Aged Out No longer eligi [...] age to complete this topic Insurance MEDICARE [facility] Advance Directives Documents on File Type Date Recorded Patient Generator Worker Expl anation Health Care Decision (hx) 11/09/2010 [...] (hx) 11/09/2010 AD DAWKINS DIRECTIVE Care Teams Composite Layup Worker Relationship Specialty Start Date End Date Monica Broussard NP [address] [place] [address] PCP - General Nurse Practitioner 10/17/24
== END 2025-09-23 11:17 | disposition home or self-care (01) ==
PROVIDERS: PCP Nurse Practitioner Primary Care; Visit Provider Hospitalist
DX: R06.09 Other forms of dyspnea (principal); J84.9 Interstitial pulmonary disease, unspecified; R91.8 Other nonspecific abnormal finding of lung field; J45.30 Mild persistent asthma, uncomplicated; G47.33 Obstructive sleep apnea (adult) (pediatric)
CPT/HCPCS: 99214; G2211

== ENCOUNTER → 2025-09-23 10:37 | Outpatient (BNVA) | payer MEDICARE, OTHER, SELFPAY | PROVIDERS: PCP Nurse Practitioner Primary Care; Visit Provider Hospitalist | DX: J84.9 Interstitial pulmonary disease, unspecified (principal); R06.09 Other forms of dyspnea; R91.8 Other nonspecific abnormal finding of lung field; J45.30 Mild persistent asthma, uncomplicated; Z79.899 Other long term (current) drug therapy | CPT/HCPCS: 99212 ==